=== PATIENT | female | born 1990 | race Two or more races ===

== ENCOUNTER 2024-11-07 03:32 | Emergency (ER) | payer MEDICAID, SELFPAY ==
[2024-11-07 03:33] VITALS: BMI 32.3
--- NOTE | 2024-11-07 03:36 | EKG_ITS ---
[facility] Test Date: 2024-11-07 Pat Name: BRYANNA SEALS Department: Room: - Gender: Female Manager Spanish: : 1990 Requested By: ED Temporary Provider Order Number: [id number] Reading MD: ED Temporary Provider Measurements Intervals [place] Rate: 130 P: 48 FL: 143 QRS: 10 QRSD: 71 T: 16 QT: 333 QTc: 490 Interpretive Statements SINUS TACHYCARDIA ABNORMAL RHYTHM ECG No previous ECG available for comparison /store/S0/[id number]/ecg/[id number].pdf
[2024-11-07 03:42] VITALS: BP 111/81; PULSE 130; RESP 19; TEMP 37.3; O2SAT 97
[2024-11-07 04:46] VITALS: BP 111/79; PULSE 104; RESP 19; TEMP 37.7; O2SAT 100
--- NOTE | 2024-11-07 04:47 | EDNOTE_ITS ---
ED Chest Pain RME/HPI General Chief Complaint: Chest Pain Stated Complaint: CHEST PAIN Time Seen by Provider: 11/07/24 04:41 Arrival date/time: 11/07/24 03:32 RME / HPI RME / HPI narrative: This section includes all my notes and documentations, including HPI, PE, and ED course. Vikash Thao MD HPI: 34 y/o female with Hx of Anxiety presents with 8/10 centered chest pain, epigastric abdominal pain, diarrhea, and vomiting x 24 hours. Describes chest pain as tight, burning, and heavy. Patient states she has been experiencing symptoms on and off for the last 2 months, but yesterday morning they became more severe. Patient had gall bladder removed in 2016. Also admits being under lots of stress. Denies any other medical history or prescribed medications. No other complaint. ROS: All negative except as documented in HPI. Physical Exam: General: Alert and oriented. No acute distress when remaining still. Appears anxious. Eyes: Conjunctivae and lids clear. ENT: No nasal congestion. Neck: Supple. Heart: RRR. Lungs: No respiratory distress. Good air movement. No rhonchi, wheezing, rales. Abdomen: Soft and nontender. Normal bowel sounds. No distension. No rebound or guarding. Back: No CVA tenderness. Skin: Warm and dry. Neuro: Alert and oriented X 3. Appears anxious. I reviewed all diagnostic test results: My interpretation of the EKG is: Sinus rhythm with no acute ST?T changes. Covid/Influenza: Negative. At this point, diagnoses include: Chest pain. Treatment here included: Xanax. Waiting for blood test results. Signed-out to Dr. Lanier at 6 AM. Vikash Thao MD Related Data Home Medications ?Medication ?Instructions ?Recorded ?Confirmed prenat.vits,chris,[id number] 1 tab PO QDAY 11/29/20 11/29/20 Previous Rx's ?Medication ?Instructions ?Recorded docusate sodium 100 mg capsule 100 mg PO BID #60 caps 11/29/20 (Colace) ibuprofen 800 mg tablet 800 mg PO Q6H PRN pain #120 tabs 11/29/20 lanolin 50 % topical ointment 1 applic topical TID PRN skin 11/29/20 irritation #15 grams alprazolam 0.5 mg tablet (Xanax) 0.5 mg PO BID PRN anx iety #10 tabs 11/07/24 Allergies Allergy/AdvReac Type Severity Reaction Status Date / Time No Known Allergies Allergy Verified 11/07/24 05:31 Review of Systems Review of Systems Systems Reviewed: All systems reviewed, normal except as documented Past Medical History Past Medical History NEUROLOGIC: Positive Migraine GASTROINTESTINAL: Positive Gastrointestinal Disorders and Gall Bladder Disease (removed 2015) PSYCHO/SOCIAL: Positive Anxiety (no meds) Family History FAMILY HISTORY: Positive Family Psychiatric Problems (pt anxiety), Family Cardiac Disorders (mother chf) and Family Surgery (gallbladder) ED Exam Narrative Physical exam: Refer to HPI. Course Quality Measures none Orders Category Date Time Status Bedside COVID-19 Antigen Test NOW Care 11/07/24 04:45 Completed Bedside Influenza A&B Antigen Test NOW Care 11/07/24 04:45 Completed Vibrating Screed Operator Q4H START 00 Care 11/07/24 04:40 Completed EKG (ED ONLY) *Do not use* NOW Care 11/07/24 03:36 Completed Insert IV NOW Care 11/07/24 05:08 Completed EKG (ED Only) Stat Exams 11/07/24 03:36 Draft BNP [B-Type Natriuretic Peptide] Stat Lab 11/07/24 05:05 Completed Bilirubin,Direct Stat Lab 11/07/24 05:05 Completed CBC Stat Lab 11/07/24 05:05 Completed CMP [Comprehensive Metabolic Panel] Stat Lab 11/07/24 05:05 Completed D-Dimer Stat Lab 11/07/24 05:05 Completed Free T4 (Free Thyroxine) Stat Lab 11/07/24 05:05 Completed Magnesium Stat Lab 11/07/24 05:05 Completed TSH [Thyroid Stimulating Hormone] Stat Lab 11/07/24 05:05 Completed Troponin I Stat Lab 11/07/24 05:05 Completed Troponin I Stat Lab 11/07/24 10:10 Completed ALPRazoLAM [Xanax] Med 11/07/24 04:45 Discontinued 0.5 mg PO X1 ONE Potassium Chloride [K-Dur] Med 11/07/24 09:45 Discontinued 40 meq PO X1 ONE Vital Signs Vital signs: Vital Signs Temperature 99.1 F 11/07/24 03:42 Pulse Rate 130 H 11/07/24 03:42 Respiratory Rate 19 11/07/24 03:42 Blood Pressure 111/81 11/07/24 03:42 Pulse Oximetry (%) 97 11/07/24 03:42 Oxygen Delivery Method Room Air 11/07/24 03:42 Chest Pain MDM Narrative MDM Narrative:: Scribe Attestation: I, Diana Jackson, am scribing for and in the presence of Dr. Thao. Provider Notation: Although this document has been carefully reviewed, there may still be some phonetic and other typographical errors.? These errors are purely grammatical due to imperfections in the software program and should not be construed in any way to? compromise the substance of the patient's medical care during this visit. 34 y/o female presents with 8/10 centered chest pain, epigastric abdominal pain, diarrhea, and vomiting x 24 hours. Describes chest pain as tight, burning, and heavy. Patient states she has been experiencing symptoms on and off for the last 2 months, but yesterday morning they became more severe. Patient had gall bladder removed in 2015. Also admits being under lots of stress. Denies any medical history or prescribed medications. No other complaint. Patient data External records reviewed:: [facility] previous records (No recent ED records isidro ilable for review.) Clinical information provided by:: patient Social determinants that could affect healthcare access:: none Patient has the following chronic illnesses:: Anxiety, Migraine. How is presenting disease/condition affected by chronic disease/condition?: exacerbated by Evaluation data The following diagnostics were reviewed and interpreted by me:: lab results and EKG tracing(s) Lab and/or radiology exams considered but not ordered:: None Interpretation Summary: Complete diagnostic test results are pending. Medications / Prescriptions Medications or Prescriptions considered but not ordered:: None Medication administrations:: Medication Administration History Discontinued Medications Alprazolam (Alprazolam 0.25 Mg Tablet) 0.5 mg PO X1 ONE Stop: 11/07/24 04:46 Last Admin: 11/07/24 04:58 Dose: 0.5 mg Documented By: ZAHIRA Potassium Chloride (Potassium Chloride 20 Meq Tabcr) 40 meq PO X1 ONE Stop: 11/07/24 09:46 Last Admin: 11/07/24 10:17 Dose: 40 meq Documented By: DO Xanax Consultations Consultation(s) initiated? (list below): No Diagnosis Chest Pain Differential Diagnosis: stable angina, unstable angina pectoris, atypical chest pain, costochondritis, chest pain and other (GERD, Gastritis, Gastroenteritis) Most likely diagnosis given after review of the tests above:: Chest pain due to anxiety. Admission Indicated Admission indicated?: not indicated Explain why admission is indicated or not indicated:: Complete diagnostic test results are pending. Admission Request Was there a request for admission?: No Disposition Plan Disposition Plan: other (specify) (Sign-out to Dr. Lanier.) Discharge Plan Plan Patient Disposition: HOME (Self Care) Prescriptions/Referrals Prescriptions/Med Rec: New alprazolam [Xanax] 0.5 mg tablet 0.5 mg PO BID PRN (Reason: anxiety) Qty: 10 0RF No Action prenat.vits,chris,[id number] Tablet 1 tab PO QDAY ibuprofen 800 mg tablet 800 mg PO Q6H MDD 4 PRN (Reason: pain) Qty: 120 0RF docusate sodium [Colace] 100 mg capsule 100 mg PO BID Qty: 60 0RF lanolin 50 % ointment 1 applic topical TID PRN (Reason: skin irritation) Qty: 15 0RF Problem List Clinical Impression: Chest pain Patient/Caregiver Discharge Instructions Discharge Activity: activity as tolerated Education Materials: ED Anxiety Reaction, ED Panic Attack Additional Instructions: Discharge instructions from Dr. Thao: 1. After extensive evaluation, there is no life-threatening condition.? Such as heart attack or pulmonary embolism (blood clots in your lungs) or pneumothorax (collapsed lung). 2. Your symptoms may be due to underlying stress or anxiety or nerves.? This is fairly common. 3. Take Xanax as needed.? Whether this helps or not will be valuable information to your private doctors. 4. See a private doctor on 11/08/2024. Ask to review all test results and official radiology reports, to make sure you receive all necessary follow-ups and monitoring. To make sure there is no serious underlying heart condition, ask to help you get more tests for your heart that cannot be done here in the ER.? Such as Holter Monitor (cardiac monitoring at home from a day to even a month), heart stress test (on treadmill or with medication), echocardiogram (imaging of your heart structures), heart catherization (checking for blockages in your heart arteries), and a referral to see a [employer] Representative. 5. Seek immediate medical care with worsening or with any concerns.?? Print Language: [place] Stand Alone Forms: [employer] Info., Patient Portal Info Letter
[2024-11-07] MEDS: ALPRazoLAM 0.25 MG TABLET 0.5 MG PO (04:58)
[2024-11-07 05:19] LABS: Basophils % (Auto) 0 % (0-2.5); Eosinophils % (Auto) 0 % (0-10); Hematocrit 41.4 % (36.0-46.0); Hemoglobin 15.3 g/dL (12.0-16.0); Immature Granulocytes % (Auto) 0 % (0-0); Immature Granulocytes Auto 0.02 Thou/mm3 (0.00-0.00); Lymphocytes % (Auto) 17 % (10-50); Mean Corpuscular Hemoglobin 29.2 pg (25.0-35.0); Mean Corpuscular Volume 79 fL (80-100); Monocytes # (Auto) 0.3 Thou/mm3 (0.0-0.8); Monocytes % (Auto) 6 % (0-12); Neutrophils # (Auto) 4.6 Thou/mm3 (1.8-7.7); Neutrophils % (Auto) 77 % (37-80); Nucleated Red Blood Cell % 0 /100 WBC (0); Platelet Count 193 Thou/mm3 (140-440); RDW Standard Deviation 35.3 fL (36.4-46.3); Red Blood Count 5.24 Miln/mm3 (4.00-5.20)
[2024-11-07 05:36] LABS: D-Dimer 729 ng/mL (<600)
[2024-11-07 06:00] VITALS: BP 117/79; PULSE 80; RESP 16; TEMP 37; O2SAT 98
[2024-11-07 07:20] LABS: Alanine Aminotransferase 142 U/L (10-49); Albumin, Serum 4.5 gm/dL (3.5-5.0); Albumin/Globulin Ratio 1.8 (1.2-2.2); Alkaline Phosphatase 81 U/L (46-116); Anion Gap 10 (7-16); BUN/Creatinine Ratio 9 Ratio (12-20); Bilirubin,Direct 0.8 mg/dL (0.0-0.3); Bilirubin,Total 1.9 mg/dL (0.3-1.2); Blood Urea Nitrogen 6 mg/dL (9-23); Calcium 9.4 mg/dL (8.3-10.6); Calcium (Corrected) 9.4 mg/dL (8.5-10.1); Carbon Dioxide 23.8 mMol/L (20.0-31.0); Chloride 106 mMol/L (98-107); Creatinine (Component) 0.7 mg/dL (0.6-1.3); Estimated Creatinine Clearance 97.3 mL/min (>60); Free T4 (Free Thyroxine) 1.49 ng/dL (0.89-1.76); Globulin 2.5 gm/dL (2.3-3.5); Glucose 125 mg/dL (74-106); Magnesium 1.7 mg/dL (1.6-2.6); Osmolality,Calculated 278 (275-295); Potassium 3.1 mMol/L (3.4-5.1); Sodium 140 mMol/L (136-145); Troponin I < 0.002 ng/mL (0.0-0.045); eGFR > 60 See Note
[2024-11-07 07:44] LABS: B-Type Natriuretic Peptide < 20 pg/mL (0-100)
--- NOTE | 2024-11-07 10:04 | PD.EDADDENDU ---
Emergency Room Addendum Addendum Narrative: 0600: Care assumed from Dr. Thao, the previous shift emergency physician. Past medical, surgical, social and family history reviewed. Vitals and home medications reviewed. I will assume the care of the patient at this time, pending delta trop and final disposition. Please refer to the emergency department record for history and examination from initial visit.?The following addendum documentation note is intended to reflect any pending information, findings, or radiology results not included in the patient?s initial chart. 0940: The RN informed me that the delta troponin had not yet been ordered. After reviewing the patient's chart and lab results, it was noted that the potassium level is mildly low at 3.1, so 40 mEq of potassium was ordered. Regarding the total bilirubin level, the patient can follow up with their primary care provider for further evaluation and consider an outpatient RUQ ultrasound. Delta troponin was negative. Patient remains clinically stable throughout the emergency department visit. We reviewed all the results, analysis, and treatment plans. Patient is amenable to discharge. Strict return precautions were outlined. Patient was discharged in stable condition.
[2024-11-07] MEDS: POTASSIUM CHLORIDE 20 mEq TABCR 40 MEQ PO (10:17)
[2024-11-07 10:50] LABS: Troponin I < 0.002 ng/mL (0.0-0.045)
[2024-11-07 10:52] VITALS: BP 107/77; PULSE 87; RESP 15; TEMP 37; O2SAT 99
[2024-11-07 11:56] VITALS: BP 113/69; PULSE 94; RESP 14; TEMP 36.6; O2SAT 100
== END 2024-11-07 11:57 | disposition home or self-care (01) ==
PROVIDERS: Family Medicine; Emergency Provider Emergency Medicine; PCP Family Medicine
DX: R07.89 Other chest pain (principal); R00.0 Tachycardia, unspecified
CPT/HCPCS: 36415; 80053; 82248; 83735; 83880; 84439; 84443; 84484; 85025; 85379; 87400; 87811; 93005; 99283; A9270